=== PATIENT | female | born 1975 | race American Indian/Alaskan Native ===

== ENCOUNTER 2017-10-22 13:09 | Outpatient (CLI) | payer MEDICAID ==
--- NOTE | 2017-10-22 16:26 | Ultrasound Report ---
Right breast ultrasound: Right breast pain with purulent discharge via the nipple. The patient presented for biopsy of retroareolar mass based on outside ultrasound. Recently finished antibiotic therapy with improvement but not success. Purulence can be easily expressed from the nipple. Imaging of the retroareolar region demonstrates a diffusely inhomogeneous nonencapsulated collection in the retroareolar region. Curvilinear areas of inhomogeneous hyperlucency are intertwined with more tissue density areas. No focal collection noted. The mass appears to be approximately 3 cm in size. No significant enhancement or attenuation of distal echoes appreciated. Our images appear essentially the same size but markedly less homogeneous. Impression: The findings are most consistent with infection. No intervention performed. Recommendation: Attempts to contact your office unsuccessful. Patient given instructions to treat symptomatically until your office reopens or use medical facility if necessary.
== END 2017-10-22 13:10 | disposition home or self-care (01) ==
LOC: SPVWC 13:09
PROVIDERS: ATTEND General Practice
DX: N63.12 Unspecified lump in the right breast, upper inner quadrant (principal)

== ENCOUNTER 2020-09-09 23:18 | Emergency (ER) | payer MEDICAID, OTHER ==
[2020-09-10] MEDS ORDERED: oxyCODONE /ACETAMINOPHEN 5-325MG TAB PO ONE (03:20)
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
[2020-09-10 05:07] VITALS: BP 137/85
== END 2020-09-10 04:35 | disposition home or self-care (01) ==
LOC: ED 23:18
DX: R07.89 Other chest pain (principal); Z86.69 Personal history of other diseases of the nervous system and sense organs; Z79.899 Other long term (current) drug therapy; V87.7XXA Person injured in collision between other specified motor vehicles (traffic), initial encounter; Y93.89 Activity, other specified; Y92.488 Other paved roadways as the place of occurrence of the external cause; Y99.8 Other external cause status
CPT/HCPCS: 71046; 99283